=== PATIENT | female | born 1960 ===

== ENCOUNTER → 2018-11-19 19:35 | Outpatient (ROUT) | payer OTHER, SELFPAY ==
[2018-11-19 20:21] LABS: Body Fluid Appearance CLOUDY; Body Fluid Color YELLOW
[2018-11-19 20:22] LABS: Body Fluid Clotted? NO CLOTS PRESENT; Body Fluid Red Blood Cells 2271 /uL; Body Fluid Tot Nucleated Cells 12842 /uL; Eosinophils Body Fluid 0 %; Mononuclear WBC Body Fluid 26 %; Other Cells Body Fluid 0 %; Polynuclear WBC Body Fluid 74 %
== END ==
PROVIDERS: Visit Provider Internal Medicine Rheumatology
DX: M05.79 Rheumatoid arthritis with rheumatoid factor of multiple sites without organ or systems involvement (principal); M25.562 Pain in left knee
CPT/HCPCS: 89051